=== PATIENT | female | born 1970 | race Caucasian/White ===

== ENCOUNTER 2016-10-12 09:07 | Emergency (ER) | payer BC ==
[~2016-10-12 09:07] MED LIST: ADDERALL5 MG PO; ASPIRIN ADULT L81 M3 PO; CAL40 PO; CIPRO500 MG PO; COLACE100 MG PO; CRESTOR5 M1 PO; DEXILANT PO; GEODON PO; GEODON80 MG PO; LAC PO; LEVAQUIN500 MG PO; LIPI10 PO; MAC100 PO; NEU300 PO; NOR5 PO; NORCO1 TA2 PO; PAX20 PO; PAXIL PO; PAXIL30 MG PO; PRI20 PO; SERO100 PO; SEROQUEL400 M1 PO; THI100 PO; TOPAMAX100 MG PO; ULTRAM50 MG PO; VAL10 PO; VALIUM10 MG PO; ZOFRAN ODT4 MG SL; [UNRECOGNIZED DRUG - CODE] PO
[2016-10-12 10:24] VITALS: BP 116/74
== END 2016-10-12 10:24 | disposition home or self-care (01) ==
LOC: ED 09:07
DX: T78.40XA Allergy, unspecified, initial encounter (principal); R03.0 Elevated blood-pressure reading, without diagnosis of hypertension; E78.5 Hyperlipidemia, unspecified; G43.909 Migraine, unspecified, not intractable, without status migrainosus; X58.XXXA Exposure to other specified factors, initial encounter; Z88.0 Allergy status to penicillin; Z88.2 Allergy status to sulfonamides; Z88.8 Allergy status to other drugs, medicaments and biological substances

== ENCOUNTER 2017-07-14 09:01 | Emergency (ER) | payer BC ==
[~2017-07-14] VITALS: Ht 170.2 cm; Wt 75.3 kg
[2017-07-14 09:13] VITALS: Ht 170.2 cm; Wt 75.3 kg
[2017-07-14 09:50] LABS: BASOPHIL % 0 % (0-2); PLATELET COUNT 183 x10^3mcL (130-400); RED CELL DISTRIBUTION WIDTH 13.5 % (11.5-14.5)
[2017-07-14 09:57] LABS: CALCIUM 8.9 mg/dL (8.5-10.1); CARBON DIOXIDE 26.3 mmol/L (21-32); CHLORIDE SERUM 107 mmol/L (98-107); CREATININE SERUM 0.9 mg/dL (0.6-1.0); GFR1 > 60 mL/min; GLUCOSE SERUM 122 mg/dL (74-106); POTASSIUM SERUM 4.6 mmol/L (3.5-5.1); SODIUM SERUM 142 mmol/L (136-145)
[2017-07-14 10:01] LABS: ALBUMIN 3.9 g/dL (3.4-5.0); ALKALINE PHOSPHATASE 109 U/L (46-116); ALT/SGPT 35 U/L (14-59); AST/SGOT 26 U/L (15-37); BILIRUBIN TOTAL 0.6 mg/dL (0.20-1.00); LIPASE 80 IU/L (73-393); TOTAL PROTEIN, SERUM 7.1 g/dL (6.4-8.2)
[2017-07-14 10:51] VITALS: BP 109/58
== END 2017-07-14 10:51 | disposition home or self-care (01) ==
LOC: ED 09:01
PROVIDERS: Emergency Medicine
DX: N12 Tubulo-interstitial nephritis, not specified as acute or chronic (principal); K21.9 Gastro-esophageal reflux disease without esophagitis; E78.00 Pure hypercholesterolemia, unspecified; G43.909 Migraine, unspecified, not intractable, without status migrainosus; Z88.0 Allergy status to penicillin; Z88.2 Allergy status to sulfonamides
CPT/HCPCS: J0696; J1885; J7030